=== PATIENT | male | born 1995 | race Caucasian/White ===

== ENCOUNTER 2018-10-02 15:25 | Inpatient (IN) | payer MEDICAID ==
--- NOTE | 2018-10-02 15:39 | EDPHY ---
H & P Source: Patient, RN/MD, EMS Exam Limitations: Clinical condition Time Seen by Provider: 10/02/18 15:34 HPI/ROS: HPI: This is a 23-year-old male who presents with Chief Complaint: M1 hold Location: psych Quality: M1 hold Duration: Unknown Signs and Symptoms: no auditory hallucinations, no visual hallucinations, no suicidal ideation with a plan, no homicidal ideation, + paranoia Timing: Acute on chronic Severity: Severe Context: Patient presents via EMS on M1 hold from crisis [facility]. Patient has a history of bipolar disorder and parents are extremely concerned about the patient not taking his Depakote for the last month. Patient has become increasingly irritable, insomnia, paranoid. Patient believes that Depakote is "poison"and that his parents are trying to"kill me." Evaluation completed by the crisis center prior to pt's arrival into the ED. Modifying Factors: None Comment: ROS: A comprehensive 10 system review of systems is otherwise negative aside from elements mentioned in the history of present illness. MEDICAL/SURGICAL/SOCIAL HISTORY: Medical history: Autism, traumatic brain injury, bipolar disorder Surgical history: Denies Social history: Lives with parents. Marijuana user. Last alcohol use was in July 2018. Denies tobacco use. Family history noncontributory. CONSTITUTIONAL: Polite and cooperative, tidy, young adult white male, awake and alert, no obvious distress HEENT: Atraumatic and normocephalic, PERRL, EOMI. Nares patent; no rhinorrhea; no nasal mucosal edema. Tympanic membranes clear. Oropharynx clear, no exudate and moist pink mucosa. Airway patent. No lymphadenopathy. No meningismus. Cardiovascular: Normal S1/S2, regular rate, regular rhythm, without murmur rub or gallop. PULMONARY/CHEST: Symmetrical and nontender. Clear to auscultation bilaterally. Good air movement. No accessory muscle usage. ABDOMEN: Soft, nondistended, nontender, no rebound, no guarding, no peritoneal signs, no masses or organomegaly. No CVAT. EXTREMITIES: 2/2 pulses, strength 5/5, no deformities, no clubbing, no cyanosis or edema. NEUROLOGICAL: no focal neuro deficits. GCS 15. Slowed cognition. SKIN: Warm and dry, no erythema. no rash. Good capillary refill. PSYCH: Fair eye contact, no flight of ideas, disorganized thought process, poor insight and judgment, no auditory hallucinations, no visual hallucinations , no suicidal ideation with a plan, no homicidal ideation, + paranoia (Bette Carranza) Constitutional: Initial Vital Signs Temperature (C) 36.6 C 10/02/18 15:46 Heart Rate 132 H 10/02/18 15:46 Respiratory Rate 18 10/02/18 15:46 Blood Pressure 149/103 H 10/02/18 15:46 O2 Sat (%) 97 10/02/18 15:46 O2 Delivery Mode Room Air Allergies/Adverse Reactions: No Known Allergies Allergy (Unverified 10/02/18 15:55) Home Medications: Medication Instructions Recorded Depakote 10/02/18 Medical Decision Making ED Course/Re-evaluation: 1530: Agree with M1 hold. Labs and UDS ordered. Patient is currently calm and cooperative in no further chemical intervention is required. 1615: Labs reviewed and grossly unremarkable. Urine drug screen negative. Medically clear for mental health evaluation. 1700: End of shift. Signed over to Dr. Howard pending final disposition which I believe will be inpatient psychiatric admission. This patient was seen under the supervision of my secondary supervising physician. I evaluated care for this patient with my attending. Discussed this patient with Dr. Howard who did not see the patient. (Bette Carranza) 2218: Patient accepted at [address] [place] [address] Hough. EMTALA and appropriate transfer to be set up. (Emile Howard) Differential Diagnosis: Differential diagnosis includes but is not limited to major depression, anxiety disorder, schizophrenia, bipolar disorder, intoxicant use, suicidal ideation, psychosis, garcia. (Bette Carranza) - Data Points Laboratory Results: Laboratory Results 10/02/18 15:50 10/02/18 15:50 10/02/18 10/02/18 10/02/18 15:50 15:50 15:45 WBC 9.00 10^3/uL 10^3/uL (3.80-9.50) RBC 5.33 10^6/uL 10^6/uL (4.40-6.38) Hgb 16.1 g/dL g/dL (13.7-17.5) Hct 45.9 % % (40.0-51.0) MCV 86.1 fL fL (81.5-99.8) MCH 30.2 pg pg (27.9-34.1) MCHC 35.1 g/dL g/dL (32.4-36.7) RDW 11.9 % % (11.5-15.2) Plt Count 302 10^3/uL 10^3/uL (150-400) MPV 10.4 fL fL (8.7-11.7) Neut % (Auto) 59.7 % % (39.3-74.2) Lymph % (Auto) 30.9 % % (15.0-45.0) [place] % (Auto) 9.1 % % (4.5-13.0) Eos % (Auto) 0.0 % L % (0.6-7.6) Baso % (Auto) 0.2 % L % (0.3-1.7) Nucleat RBC Rel Count 0.0 % % (0.0-0.2) Absolute Neuts (auto) 5.37 10^3/uL 10^3/uL (1.70-6.50) Absolute Lymphs (auto) 2.78 10^3/uL 10^3/uL (1.00-3.00) Absolute Monos (auto) 0.82 10^3/uL H 10^3/uL (0.30-0.80) Absolute Eos (auto) 0.00 10^3/uL L 10^3/uL (0.03-0.40) Absolute Basos (auto) 0.02 10^3/uL 10^3/uL (0.02-0.10) Absolute Nucleated RBC 0.00 10^3/uL 10^3/uL (0-0.01) Immature Gran % 0.1 % % (0.0-1.1) Immature Gran # 0.01 10^3/uL 10^3/uL (0.00-0.10) Sodium 139 mEq/L mEq/L (135-145) Potassium 3.6 mEq/L mEq/L (3.5-5.2) Chloride 101 mEq/L mEq/L (97-110) Carbon Dioxide 22 mEq/l mEq/l (22-31) Anion Gap 16 mEq/L H mEq/L (6-14) BUN 9 mg/dL mg/dL (7-23) Creatinine 0.8 mg/dL mg/dL (0.7-1.3) Estimated GFR > 60 Glucose 112 mg/dL H mg/dL (70-100) Calcium 10.1 mg/dL mg/dL (8.5-10.4) Urine Opiates Screen NEGATIVE (NEGATIVE) Urine Barbiturates NEGATIVE (NEGATIVE) Valproic Acid 29.8 mcg/mL L mcg/mL (50.0-150.0) Ur Phencyclidine Scrn NEGATIVE (NEGATIVE) Ur Amphetamine Screen NEGATIVE (NEGATIVE) U Benzodiazepines Scrn NEGATIVE (NEGATIVE) Urine Cocaine Screen NEGATIVE (NEGATIVE) U Marijuana (THC) Screen NEGATIVE (NEGATIVE) Ethyl Alcohol < 10 mg/dL mg/dL (0-10) Departure - Departure Disposition: [facility] IP Clinical Impression: Not taking medication as directed Bipolar affective psychosis Qualifiers: Active/Remission status: currently active Current bipolar episode type: manic Current episode severity: severe Psychotic features: without psychotic features Qualified Code(s): F31.13 - Bipolar disorder, current episode manic without psychotic features, severe
[2018-10-02 16:02] LABS: PLATELET COUNT 302 10^3/uL (150-400)
[2018-10-02] MEDS ORDERED: NICOTINE POLACRILEX 2 MG GUM B PRN (23:11)
[2018-10-02] MEDS ORDERED: MAGNESIUM HYDROXIDE 30 ML UDCUP PO PRN (23:11)
[2018-10-02] MEDS ORDERED: MAG HYDROX/AL HYDROX/SIMETH 30 ML UDCUP PO PRN (23:11)
[2018-10-02] MEDS: ACETAMINOPHEN 325 MG TAB PO PRN (23:35)
[2018-10-02] MEDS: LORazepam 0.5 MG TAB PO PRN (23:35)
[2018-10-03] MEDS: LORazepam 0.5 MG TAB PO PRN (09:49)
--- NOTE | 2018-10-03 09:59 | ASMTBHMTP ---
Master Treatment Plan Master Treatment Plan Answers: Mood Instability with for: Psychosis Date: 10/03/2018 Diagnosis on Admission: Posttraumatic Stress Disorder 309.81 Expected length of stay: 3-5 Days Reason for admission: Notes: Per ED Report - Patient presents via EMS on M1 hold from [facility]. Patient has a history of bipolar disorder and parents are extremely concerned about the patient not taking him Depakote for the last month. Patient has become increasingly irritable, insomnia, paranoid. Patient believe that Depakote is "poison" and that his parents are trying to "kill me". Evaluation completed by the crisis center prior to pt's arrival into the ED. Patient's stated presenting problems: Notes: Pt reports having "bad side effects from medications", adding he would "stay up for 3-4 day in a row, and only be able to sleep a couple of hours". Patient's goals for treatment: Notes: Pt stated " not be reliant on prescriptions" adding he would like to at least use less medications . Patient's strengths: Notes: Pt. stated "Focus" Identify supports outside of hospital: Notes: Pt stated "Don't really have one". Discharge criteria: Notes: Patient will demonstrate more stable mood by discharge. Initial disposition plan/considerations: Notes: Return home where pt. lives with his parents. Master Treatment Plan Required Signatures Psychiatrist signature: Answers: Jm Hough MD: RN on-shift signature: Answers: RN: Patient signature: Answers: Patient: Date Signed: 10/03/2018 09:58 AM Electronically Signed By:Candy Ashton
--- NOTE | 2018-10-03 14:14 | ASMTCMCOM ---
CM Note CM Note Notes: Pt and CC completed MTP, signed and placed in pt's chart. Pt. reports having "bad side effects from medication" adding the medication was Depakote. Pt. stated this is his second hospitalization, adding he was last hospitalized 10 years ago in [place]. Pt. stated he does not drink alcohol. Pt. reports smoking or vaping THC "once a week". Pt. denied all other substance use. Pt. reports not currently having a job. Pt. presents as alert, anxious, tense, inconsistent eye contact, somewhat guarded, and mostly cooperative. Staff report pt. sleeping 6 hours and attending groups. Date Signed: 10/03/2018 02:14 PM Electronically Signed By:Candy Ashton
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
--- NOTE | 2018-10-03 17:50 | PDMN ---
Medical Necessity Medical necessity: Pt meets INPT criteria per MD as of 10/02/18 and [facility] Behavioral Health [facility] (mood and personality changes d/t TBI, M1 hold).
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
[2018-10-03] MEDS ORDERED: DIVALPROEX ER 500 MG TAB PO SCH (21:00)
[2018-10-04] MEDS ORDERED: DIVALPROEX ER 500 MG TAB PO SCH (06:39)
--- NOTE | 2018-10-04 12:45 | ASMTCMCOM ---
CM Note CM Note Notes: CC spoke to pt after pt. called 911 on himself. Pt. stated he feels scared of "other people" including staff. Pt. stated he would like to be transferred to another hospital. Pt. stated he slept "not very good". Pt. stated he called the police on himself due to feeling guilty. Pt. stated he was stalking someone for over a year. Pt. stated this is why he has a court date. Pt. stated he does not remember when his court date is. Pt. signed an ANISH for his father, for CC to call and confirm pt's court date. Pt. stated he "want things to change", adding he wants the woman he was stalking to "feel safe", adding he will stay away from her. Pt later told CC he is willing to take the Depakote. Pt. presents as alert, anxious, tearful at times, inconsistent eye contact, struggling to remember, and cooperative. Staff report pt. sleeping 5.5 hours. Date Signed: 10/04/2018 12:44 PM Electronically Signed By:Candy Ashton
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
--- NOTE | 2018-10-04 16:48 | ASMTLCPROG ---
Notes Note: Notes: Note written by Brien Red - late entry d/t IT issues. M1 AND [facility] EVAL FAX ATTACHED. Date Signed: 10/04/2018 04:47 PM Electronically Signed By:Ailyn Guillermo RN
[2018-10-04] MEDS ORDERED: OLANZapine 10 MG TAB PO ONE (20:00)
[2018-10-04] MEDS ORDERED: OLANZapine 10 MG/2 ML VIAL IM ONE (20:00)
[2018-10-04] MEDS ORDERED: LORazepam 2 MG/ML INJ IM ONE (20:00)
[2018-10-04] MEDS ORDERED: LORazepam 1 MG TAB PO ONE (20:00)
[2018-10-04] MEDS: DIVALPROEX ER 500 MG TAB PO SCH (20:21)
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
[2018-10-05] MEDS: OLANZapine 5 MG TAB PO PRN (17:02)
[2018-10-05] MEDS: DIVALPROEX ER 500 MG TAB PO SCH (21:02)
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
--- NOTE | 2018-10-06 14:06 | ASMTBHFAM ---
Notes Note: Notes: Addendum to previous note: Per MOC, the patient is prescribed 1000mg of Depakote, HS, PO. He has a history of taking Risperdal and Abilify. The patient stopped Risperdal due to the cost of the medication. He was prescribed Abilify in addition to Depakote for three years prior to discontinuing the medication. MOC reported that the client was successful on both medications. Date Signed: 10/06/2018 02:05 PM Electronically Signed By:Leticia Garza
--- NOTE | 2018-10-06 14:30 | SOAPPROG ---
SOAP Progress Note Assessment/Plan: Assessment: Plan: 10/04/18 15:57 Mood: REmains low. Agrees to restart VPA. This is likely to help with stability of mood, though he may need more definitive treatment for quality of mood. Will [facility] for now, convene family meeting to discuss next steps inc: [employer]. 10/05/18 14:57 Mood/psychosis: Remains intermittently agitated, paranoid. His belief that he needs to protect himself is concerning re: possible aggressive behaviors based on paranoid delusions. Remains on SP and AP. Will [facility], consider addition of antipsychotic. Parents available for family meeting tomorrow. 10/06/18 14:30 Mood/psychosis: REmains labile, agitated, self-abusive, psychotic. Will titrate VPA and add Risperdal, monitor. Subjective: Pt seen, discussed with staff, chart reviewed. Pt escalate last night, placed on LOS due to self-harming. He is better today, seems to consolidate when in the milieu. Family meeting scheduled for noon, but family 45 minutes late. CC held meeting and was able to obtain a bit more information. Pt reportedly took Risperdal in the past with good effect. It was d/c'd due to cost. Objective: Vital Signs Temp Pulse Resp BP Pulse Ox 36.7 C 123 H 16 112/63 93 10/05/18 06:00 10/05/18 06:00 10/05/18 06:00 10/05/18 06:00 10/05/18 06:00 MSE: Calm, coop. Affect is restricted, anxious, tearful at times. Mood is "bad." TP is linear at times, but frequently derails. TC reveals paranoid, bizarre, somatic and erotomanic delusions. SI persists, based primarily in pt' s overriding belief he has done something wrong and deserves to be punished. - Time Spent With Patient Time Spent With Patient: 15" ICD10 Worksheet Patient Problems: Problems Problem Status Onset Bipolar affective psychosis Acute Not taking medication as directed Acute
[2018-10-06] MEDS ORDERED: CEPACOL LOZENGE PO PRN (16:49)
[2018-10-06] MEDS: LORazepam 0.5 MG TAB PO PRN (18:49)
[2018-10-06] MEDS: OLANZapine 5 MG TAB PO PRN (18:59)
[2018-10-06] MEDS: DIVALPROEX ER 500 MG TAB PO SCH (21:49)
[2018-10-06] MEDS: RISPERIDONE 2 MG ODT TAB SL SCH (21:49)
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
[2018-10-07] MEDS: RISPERIDONE 2 MG ODT TAB SL SCH (19:54)
[2018-10-07] MEDS: DIVALPROEX ER 500 MG TAB PO SCH (19:54)
--- NOTE | 2018-10-07 22:50 | SOAPPROG ---
SOAP Progress Note Assessment/Plan: Assessment: Plan: 10/04/18 15:57 Mood: REmains low. Agrees to restart VPA. This is likely to help with stability of mood, though he may need more definitive treatment for quality of mood. Will [facility] for now, convene family meeting to discuss next steps inc: [employer]. 10/05/18 14:57 Mood/psychosis: Remains intermittently agitated, paranoid. His belief that he needs to protect himself is concerning re: possible aggressive behaviors based on paranoid delusions. Remains on SP and AP. Will [facility], consider addition of antipsychotic. Parents available for family meeting tomorrow. 10/06/18 14:30 Mood/psychosis: REmains labile, agitated, self-abusive, psychotic. Will titrate VPA and add Risperdal, monitor. Subjective: Pt seen, discussed with staff. Reserved and calm this morning. Had an event later in the day thought to be a seizure. Evaluated by Dr. Armando and sent to ED. Dx'd with pseudoseizures. Had similar event upon returning to unit. Spoke with RN at that time and it does not seem to represent a true epileptic seizure. Will monitor. Objective: Vital Signs Temp Pulse Resp BP Pulse Ox 36.8 C 96 16 136/76 H 98 10/07/18 07:06 10/07/18 07:06 10/07/18 07:06 10/07/18 07:06 10/07/18 07:06 ICD10 Worksheet Patient Problems: Problems Problem Status Onset Bipolar affective psychosis Acute Not taking medication as directed Acute Anxiety reaction Acute Seizure-like activity Acute
[2018-10-08] MEDS: LORazepam 0.5 MG TAB PO PRN (11:26)
--- NOTE | 2018-10-08 11:58 | ASMTCMCOM ---
CM Note CM Note Notes: Pt. reports today "just like any other normal day". Pt. stated he has a "lot on my mind and chest to get off", referring to the past ten years of his life. Pt. stated his sleep was "little difficult". Pt. reports "feeling sick", adding he is having a "hard time holding food in", adding he threw up today. Pt. discussed his medications, stating "just that some of them make me feel light headed". Pt. stated he missed most of the groups yesterday, due to being in the ED, adding he plans to attend all groups today. Pt. reports SI, stating he has a plan, but did not want to share with CC. Pt. contracted for safety while on the unit, and rated his SI a 4 or 5/10. Pt. reports having seizures for "the last couple of months", adding he would fall asleep in one room and wake up in a different area. Pt. stated last evening he wasn't having a seizure but was having an anxiety attack. Pt. reports his anxiety currently being a 6/10, adding at home his anxiety is a 9-10/10. Pt. reports "feel a lot calmer here". Pt. requested to speak with CC about the last two years and his recent relationship. Pt. reported he would spend his money on drugs instead of diapers for his girlfriend's two children. Pt. presents as alert, very guarded, evasive at times, fair to poor eye contact, rigid posture, and mostly cooperative. Staff report pt. sleeping 7.5 hours and being medication compliant. Date Signed: 10/08/2018 11:57 AM Electronically Signed By:Candy Ashton
--- NOTE | 2018-10-08 12:38 | SOAPPROG ---
SOAP Progress Note Assessment/Plan: Assessment: Plan: 10/04/18 15:57 Mood: REmains low. Agrees to restart VPA. This is likely to help with stability of mood, though he may need more definitive treatment for quality of mood. Will [facility] for now, convene family meeting to discuss next steps inc: meds. 10/05/18 14:57 Mood/psychosis: Remains intermittently agitated, paranoid. His belief that he needs to protect himself is concerning re: possible aggressive behaviors based on paranoid delusions. Remains on SP and AP. Will [facility], consider addition of antipsychotic. Parents available for family meeting tomorrow. 10/06/18 14:30 Mood/psychosis: REmains labile, agitated, self-abusive, psychotic. Will titrate VPA and add Risperdal, monitor. 10/08/18 12:41 Mood/psychosis: Continues to function at a very low level. Now demonstrating primitive regressive behaviors. Behavioral plan in place. Will [facility], monitor. Subjective: Pt seen, discussed with staff. Events of last night reviewed. He is sitting in day room watching TV when I arrive on the unit. 15 minutes later, he is still sitting, but has his eyes closed with his UE's bent at the elbow isotonically flexing with fists clenched. His neck is similarly tensed/flexed. He demonstrates normal postural tone. He does not respond to verbal or tactile stimuli. He continues this behavior for at last ten minutes before calming. Approximately one hour later, he is noted to be sitting in a similar position, though leaning to his right, shaking and flexing his upper musculature in a more rhythmic manner. Remains unresponsive. Objective: Vital Signs Temp Pulse Resp BP Pulse Ox 36.5 C 116 H 16 140/74 H 99 10/08/18 06:00 10/08/18 06:00 10/08/18 06:00 10/08/18 06:00 10/08/18 06:00 MSE: Marginally groomed, coop. Affect is restricted, stable. Mood is "not too good." TP is generally disorganized. TC reveals continued paranoid and bizarre thoughts. - Time Spent With Patient Time Spent With Patient: 25" ICD10 Worksheet Patient Problems: Problems Problem Status Onset Bipolar affective psychosis Acute Not taking medication as directed Acute
--- NOTE | 2018-10-08 12:41 | ASMTBHFAM ---
Notes Note: Notes: CC spoke with [facility] [phone] MOC stated pt. is "convinced people are trying to kill him". MOC stated pt does not have any court dates or any legal issues. MOC stated pt. was also not stalking or charged with stalking, MOC added this is part of the patient's current mental health issues. stated at baseline, pt. is calm and very non violent or aggressive. CC informed [facility] [place] going to the ED for SZ yesterday. MOC stated she was surprised to hear he had a seizure, adding he doesn't have them normally. MOC stated their dog had a seizure disorder. MOC stated pt is "trying to act as normal as possible to get out". MOC stated pt. "preseverates", and is "easily redirectable", and benefits from "concreate directions" and "being rational". MOC stated pt. attempted suicide in June of 2018 by alcohol poisoning. MOC stated she was upset pt was not placed on a hold at that time. MOC stated pt laryy wanted to get back on Depakote and was "back to normal" around . MOC stated pt. has been able to make only one appointment on his own in his life. MOC stated pt. was tested and functions around a 9th grade level. MOC stated pt. may take a little longer to benefit from medications, adding the pt. has had reactions to medications in the past. MOC stated pt "needs more reinforcement". MOC stated there are antique guns locked away in the home, adding they do not fire and there is not ammunition for them in the home. MOC stated she is not worried about pt. using these antique guns to harm himself. Date Signed: 10/08/2018 12:40 PM Electronically Signed By:Candy Ashton
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
[2018-10-08] MEDS: DIVALPROEX ER 500 MG TAB PO SCH (20:24)
[2018-10-08] MEDS: RISPERIDONE 2 MG ODT TAB SL SCH (20:25)
--- NOTE | 2018-10-09 14:20 | ASMTCMCOM ---
CM Note CM Note Notes: CC met with pt while he was eating breakfast. Pt. reports "not feeling too good". Pt. stated he feels like he has the flu, adding he has nausea and a headache. Pt. stated it is "hard to eat right now" due to the nausea. Pt. stated he slept "not too good" stating due to not feeling good. Pt. stated he attended a few groups yesterday. CC asked pt about his medications, pt stated "don't know what I'm taking or how much". Pt. stated he misses being in his room in the hospital. Pt. reports having 1-2 anxiety attacks this morning, when he can't control himself and shakes. Pt. stated "it's the medicine" adding he believe these anxiety attacks are due to the Ativan. Pt. stated Ativan is "making me feel nauseous and dizzy". Pt. denied SI, HI, AVH and paranoia. Pt. requested to be allowed back in his room today. Pt. presents as alert, anxious, guarded, somewhat evasive, lacking insight, good eye contact, and mostly cooperative. Staff report pt. sleeping 7 hours and being medication compliant. CC reviewed pt.'s behavioral plan with him today. CC explained to pt that due to his pseudoseizures/anxiety attacks pt will not be allowed back into his room at this point for safety reasons. Pt. threw up later in the day and staff noticed pt threw up his Depakote. Pt. stated he no longer wants to take Depakote. Date Signed: 10/09/2018 02:19 PM Electronically Signed By:Candy Ashton
--- NOTE | 2018-10-09 14:41 | SOAPPROG ---
SOAP Progress Note Assessment/Plan: Assessment: Per Dr. George's notes: 10/04/18 15:57 Mood: REmains low. Agrees to restart VPA. This is likely to help with stability of mood, though he may need more definitive treatment for quality of mood. Will [facility] for now, convene family meeting to discuss next steps inc: meds. 10/05/18 14:57 Mood/psychosis: Remains intermittently agitated, paranoid. His belief that he needs to protect himself is concerning re: possible aggressive behaviors based on paranoid delusions. Remains on SP and AP. Will [facility], consider addition of antipsychotic. Parents available for family meeting tomorrow. 10/06/18 14:30 Mood/psychosis: REmains labile, agitated, self-abusive, psychotic. Will titrate VPA and add Risperdal, monitor. 10/08/18 12:41 Mood/psychosis: Continues to function at a very low level. Now demonstrating primitive regressive behaviors. Behavioral plan in place. Will [facility], monitor. Subjective: Pt seen, discussed with staff. Events of last night reviewed. He is sitting in day room watching TV when I arrive on the unit. 15 minutes later, he is still sitting, but has his eyes closed with his UE's bent at the elbow isotonically flexing with fists clenched. His neck is similarly tensed/flexed. He demonstrates normal postural tone. He does not respond to verbal or tactile stimuli. He continues this behavior for at last ten minutes before calming. Approximately one hour later, he is noted to be sitting in a similar position, though leaning to his right, shaking and flexing his upper musculature in a more rhythmic manner. Remains unresponsive. WEEKEND COVERAGE PLAN: 10/09/18 14:33 1. Patient threw up this AM. Claims "the meds" are making him nauseous, even though he has tolerated Depakote for months without N/V. 2. Patient says he needs to "get back in my room" even though he was engaging in unsafe behaviors in his room including destroying property and ingesting toiletries. Will continue OOR program for his safety. 3. No seizures or abnormal movements while this MD was observing patient. 4. Patient claims he no longer wants to take Depakote. Family wants to know if he can be started on RICHARDS. MD explained that treatment team will need to determine whether patient can tolerate current antipsychotic medication ( Risperdal) and whether it is effective for his symptoms before switching to RICHARDS which can always be done at later time as an outpatient if warranted. 5. Will continue current treatment and assess for SE's. Subjective: Patient threw up this AM. He says he doesn't want to take VPA anymore b/c he thinks that's what made him sick. However, patient has taken VPA at home for quite awhile without reporting N/V. When MD spoke to patient, he was sitting in chair in front of the TV without moving. He did not have any abnormal muscle movements and there were no signs of the contractions or unresponsiveness that Dr. Armando and Dr. George noted yesterday. MD continued to observe the patient at other times during the day and did not observe any seizure-like activity. Objective: Vital Signs Temp Pulse Resp BP Pulse Ox 36.6 C 83 16 126/81 H 94 10/09/18 02:11 10/09/18 02:11 10/09/18 02:11 10/09/18 02:11 10/09/18 02:11 MSE: Affect: Flat at times, irritable other times (when insisting he didn't want to take VPA) Mood: "OK" TP: Perseverative TC: Denies any SI/HI Insight/ Judgment: Limited - Time Spent With Patient Time Spent With Patient: 15" - Pending Discharge Pending Discharge Within 24 Hours: No Pending Discharge Within 48 Hours: No ICD10 Worksheet Patient Problems: Problems Problem Status Onset Bipolar affective psychosis Acute Not taking medication as directed Acute
[2018-10-09] MEDS: OLANZapine 5 MG TAB PO PRN (17:59)
[2018-10-09] MEDS: DIVALPROEX ER 500 MG TAB PO SCH (20:36)
[2018-10-09] MEDS: RISPERIDONE 2 MG ODT TAB SL SCH (20:36)
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
--- NOTE | 2018-10-10 16:22 | SOAPPROG ---
SOAP Progress Note Assessment/Plan: Assessment: Per Dr. George's notes: 10/04/18 15:57 Mood: REmains low. Agrees to restart VPA. This is likely to help with stability of mood, though he may need more definitive treatment for quality of mood. Will [facility] for now, convene family meeting to discuss next steps inc: meds. 10/05/18 14:57 Mood/psychosis: Remains intermittently agitated, paranoid. His belief that he needs to protect himself is concerning re: possible aggressive behaviors based on paranoid delusions. Remains on SP and AP. Will [facility], consider addition of antipsychotic. Parents available for family meeting tomorrow. 10/06/18 14:30 Mood/psychosis: REmains labile, agitated, self-abusive, psychotic. Will titrate VPA and add Risperdal, monitor. 10/08/18 12:41 Mood/psychosis: Continues to function at a very low level. Now demonstrating primitive regressive behaviors. Behavioral plan in place. Will [facility], monitor. Subjective: Pt seen, discussed with staff. Events of last night reviewed. He is sitting in day room watching TV when I arrive on the unit. 15 minutes later, he is still sitting, but has his eyes closed with his UE's bent at the elbow isotonically flexing with fists clenched. His neck is similarly tensed/flexed. He demonstrates normal postural tone. He does not respond to verbal or tactile stimuli. He continues this behavior for at last ten minutes before calming. Approximately one hour later, he is noted to be sitting in a similar position, though leaning to his right, shaking and flexing his upper musculature in a more rhythmic manner. Remains unresponsive. WEEKEND COVERAGE PLAN: 10/09/18 14:33 1. Patient threw up this AM. Claims "the meds" are making him nauseous, even though he has tolerated Depakote for months without N/V. 2. Patient says he needs to "get back in my room" even though he was engaging in unsafe behaviors in his room including destroying property and ingesting toiletries. Will continue OOR program for his safety. 3. No seizures or abnormal movements while this MD was observing patient. 4. Patient claims he no longer wants to take Depakote. Family wants to know if he can be started on RICHARDS. explained that treatment team will need to determine whether patient can tolerate current antipsychotic medication ( Risperdal) and whether it is effective for his symptoms before switching to RICHARDS which can always be done at later time as an outpatient if warranted. 5. Will continue current treatment and assess for SE's. PLAN: 10/10/18 16:19 1. Patient has more energy and animation today. He is not so immobile as previous 2 days. 2. Patient has not demonstrated any seizure-like activity or abnormal movements over w/e. 3. Patient denies any N/V since yesterday. 4. Patient took VPA and Risperdal as prescribed last night despite telling MD yesterday that he didn't want to take VPA. 5. CCM. Subjective: Patient feeling "better" today, denies any physical complaints. Patient denies any N/V since yesterday. He also denies any lightheadedness, dizziness, ataxia, muscle spasms, contractions, abnormal muscle movements, tics, twitches, OSBORN. MD has not observed any seizure-like activity over w/e. Patient took shower this AM and did his laundry. Objective: Vital Signs Temp Pulse Resp BP Pulse Ox 36.6 C 83 16 126/81 H 94 10/09/18 02:11 10/09/18 02:11 10/09/18 02:11 10/09/18 02:11 10/09/18 02:11 MSE: Affect: Calm, cooperative Mood: "Fine" TP: Goal-directed TC: Denies any SI/HI Insight/Judgment: Poor - Time Spent With Patient Time Spent With Patient: 15" - Pending Discharge Pending Discharge Within 24 Hours: No Pending Discharge Within 48 Hours: No ICD10 Worksheet Patient Problems: Problems Problem Status Onset Bipolar affective psychosis Acute Not taking medication as directed Acute
[2018-10-10] MEDS: DIVALPROEX ER 500 MG TAB PO SCH ×2 (22:11→22:40)
[2018-10-10] MEDS: RISPERIDONE 2 MG ODT TAB SL SCH ×2 (22:12→22:40)
--- NOTE | 2018-10-11 08:32 | SOAPPROG ---
SOAP Progress Note Assessment/Plan: Assessment: Schizoaffective Disorder, delusional. No improvement noted, refused HS medications (see subjective/objective note). Patient is not safe to discharge at this time as patient continues to exhibit signs of psychosis, and express psychosis symptoms. Patient requires continued inpatient care because of current psychosis, and requires inpatient level of care to stabilize in order to no longer be gravely disabled due to mental illness. Patient could benefit from continued inpatient hospitalization for crisis stabilization, safety, and medication evaluation. Plan: 1. Psychotropic medications: After reviewing options, risks, and benefits patient agrees to continue current medications. No other medication changes at this time as more time is needed to determine ongoing tolerability and efficacy. Plan is to continue to observe patient for response and side effects from medications, and ongoing monitoring and evaluation. 2. Review with patient informed consent and recommendations for psychotropic medication treatment listed below 3. Labs: no additional labs at this time 4. Therapy: continue milieu and group therapy 5. Further investigation including gathering information from patients relatives and review of past case records to inform treatment plan. 6. Safety/Wellness plan and follow-up outpatient appointments to be established prior to discharge. Next steps are for patient to meet with cattle care worker to plan a safe discharge plan and establish outpatient services for ongoing treatment. 7. Confer with inpatient treatment team regarding treatment plan. 8. Psychosocial stressors addressed through human services care specialist 9. Legal status: [facility] 10. Consider discharge next week if patient is in stable condition, safe, and has a safe discharge plan. PSYCHOTROPIC MEDICATION TREATMENT INFORMED CONSENT and RECOMMENDATIONS: Review nature of condition, diagnosis, and prognosis. Review nature and purpose of psychotropic medication treatment. Review type of psychotropic medications being ordered. Review risk and benefits of psychotropic medication treatment. Review probable length of time patient will need to take medications. Review risk and benefits of not undergoing psychotropic medication treatment. Review alternative treatments to psychotropic medications. Review psychotropic medications contraindications, drug-drug interactions, side effects, and importance of reporting any side effects to a psychiatric provider or nurse during inpatient hospitalization, and upon discharge to patients psychiatric outpatient provider, primary care provider, or other health managed care director. Review importance of asking a nurse, psychiatric provider, or primary care provider any questions or problems concerning the psychotropic medications. Verify patient understands the information that has been provided, and understands, accepts, and agrees to psychotropic medications. Review patients safety plan and importance of patient to report to staff while hospitalized if patient is ever a danger to self/others, or unable to care for self, and upon discharge, the importance for patient to contact [facility] or [facility], or go to the nearest emergency room, if patient is ever a danger to self/others, or unable to care for self. Recommend that upon discharge patient establish medication management treatment with a psychiatric provider, establishes routine therapy appointments, and follow-up with primary care provider. Verify patient understands and agrees to these recommendations. 10/11/18 08:35 Subjective: Following up with patient for evaluation of psychosis, garcia, and safety. Patient reports, "Feeling better, listening to the nurses and doctors." Patient expresses the following psychiatric symptoms moderate anxiety. Patient reports taking medications as prescribed, and describes response to medications as good (RN reports patient refused HS medications). Patient does not report undesirable side effects from the medications, and agrees to continue current medications. Patient describes getting 8 hours of sleep, and reports feeling rested today. Objective: Vital Signs Temp Pulse Resp BP Pulse Ox 36.8 C 104 H 14 97/53 L 97 10/11/18 06:00 10/11/18 06:00 10/11/18 06:00 10/11/18 06:00 10/11/18 06:00 NURSING REPORT: Consulted with nursing for update on patients progress in treatment. Nurses report patient is not engaged in treatment, is not attending groups, slept 7 hours, expresses the following psychiatric symptoms: anxiety, exhibits the following psychiatric symptoms: delusional, is eating all meals, is not agreeable to medications and not taking as prescribed with no report of side effects, with no s/s of EPS/akathisia, and denies SI/HI, denies A/V hallucinations, and reports delusions. Nursing note from 10/10/18: pt remains delusional, that someone is out to murder him. Otherwise, he continually says contradictory statements about his delusional system. ultimately refused his evening medications, despite repeated encouragement from staff. MSE: The patient is a well-nourished male looking stated chronological age. Attire is appropriate and dress is casual. Grooming status is appropriate. Ambulation is independent. Gait is normal and coordinated. Posture is normal and relaxed. Eye contact is appropriate. Motor activity is appropriate with purposeful, organized, coordinated movements; with no involuntary movements. Attitude is cooperative and friendly. Patient appears attentive and relates well to this interviewer. Language production is spontaneous. Rate is hesitant , latency of response is prolonged, volume normal. Articulation is clear. Patient reports mood as okay with constricted, flat, and incongruent affect. Patients thought process disorganized, non-linear, and illogical. Patient does not report suicidal/homicidal thoughts, ideas, or plans. Patient denies auditory, visual hallucinations. Patient reports delusions. Patient does appear to be attending to internal stimuli. Patients attention and concentration are poor. Patient is oriented to person, place, and time. Patient appears to be a poor historian. Patients insight and judgment poor. - Time Spent With Patient Time Spent With Patient: 15 minutes, met with patient individually. - Pending Discharge Pending Discharge Within 24 Hours: No Pending Discharge Within 48 Hours: No ICD10 Worksheet Patient Problems: Problems Problem Status Onset Bipolar affective psychosis Acute Not taking medication as directed Acute
[2018-10-11] MEDS: DIVALPROEX ER 500 MG TAB PO SCH (22:01)
[2018-10-11] MEDS: RISPERIDONE 2 MG ODT TAB SL SCH (22:01)
[2018-10-12] MEDS: ACETAMINOPHEN 325 MG TAB PO PRN (07:50)
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
--- NOTE | 2018-10-12 12:04 | ASMTCMCOM ---
CM Note CM Note Notes: CC out-reached MOC at [phone]; no answer left message with all necessary return contact information, etc. Date Signed: 10/12/2018 12:03 PM Electronically Signed By:Grant Evans
[2018-10-12] MEDS: LORazepam 0.5 MG TAB PO PRN (16:23)
[2018-10-12] MEDS: DIVALPROEX ER 500 MG TAB PO SCH (17:48)
[2018-10-12] MEDS: RISPERIDONE 2 MG ODT TAB SL SCH (19:58)
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
[2018-10-13] MEDS: DIVALPROEX ER 500 MG TAB PO SCH (20:23)
[2018-10-13] MEDS: RISPERIDONE 2 MG ODT TAB SL SCH (20:23)
[2018-10-14] MEDS ORDERED: RISPERIDONE MICROSPHERES 25 MG/2 ML IM ONE (12:01)
--- NOTE | 2018-10-14 17:40 | SOAPPROG ---
SOAP Progress Note Assessment/Plan: Assessment: Plan: 10/04/18 15:57 Mood: REmains low. Agrees to restart VPA. This is likely to help with stability of mood, though he may need more definitive treatment for quality of mood. Will [facility] for now, convene family meeting to discuss next steps inc: meds. 10/05/18 14:57 Mood/psychosis: Remains intermittently agitated, paranoid. His belief that he needs to protect himself is concerning re: possible aggressive behaviors based on paranoid delusions. Remains on SP and AP. Will CCM, consider addition of antipsychotic. Parents available for family meeting tomorrow. 10/06/18 14:30 Mood/psychosis: REmains labile, agitated, self-abusive, psychotic. Will titrate VPA and add Risperdal, monitor. 10/08/18 12:41 Mood/psychosis: Continues to function at a very low level. Now demonstrating primitive regressive behaviors. Behavioral plan in place. Will [facility], monitor. 10/12/18 11:03 Mood/psychosis: Continued improvement. Hope to encourage pt to continue positive and self-efficacious behaviors. Will check VPA level, schedule family meeting. 10/13/18 14:41 Mood/psychosis: Much improved overall. Primitive acting out has stopped. Will [facility]. Family meeting tomorrow. 10/14/18 17:40 Mood/psychosis: Continued improvement. CCM. Likely d/c tomorrow. Subjective: Pt seen, discussed with staff, interviewed in family meeting with myself, pt's mother, and CC present. He remains in good behavioral control. Complying without complaint with reverse room protocol. Compliant with medications. Pt is agreeable to a Risperdal Consta injection. Agreeable to continuing medications, but questions whether or not he really needs them. All present give reinforcement for continued medication use. Discussed plan for d/c as early as tomorrow. Objective: Vital Signs Temp Pulse Resp BP Pulse Ox 36.8 C 98 14 109/57 L 96 10/14/18 06:00 10/14/18 06:00 10/14/18 06:00 10/14/18 06:00 10/14/18 06:00 MSE: Calm, coop. Affect is generally euthymic with an odd smile at times. Mood is "good." TP is linear with occasional blocking. TC reveals no mention of paranoia. Denies SI/HI/. - Time Spent With Patient Time Spent With Patient: 25" ICD10 Worksheet Patient Problems: Problems Problem Status Onset Bipolar affective psychosis Acute Not taking medication as directed Acute
[2018-10-14] MEDS: DIVALPROEX ER 500 MG TAB PO SCH (20:31)
[2018-10-14] MEDS: RISPERIDONE 2 MG ODT TAB SL SCH (20:31)
[2018-10-15] MEDS: LORazepam 0.5 MG TAB PO PRN (02:08)
[2018-10-15] MEDS: OLANZapine 5 MG TAB PO PRN (02:10)
[2018-10-15 06:57] VITALS: BP 107/62
--- NOTE | 2018-10-16 05:22 | BDS ---
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 He also has a history of possible pervasive development developmental delay and psychosis. He was admitted to the [facility] inpatient unit due to increasing agitation at home. He was paranoid about h is mother and stepfather, believing that they were publishing things about him on the internet that w ere untrue and poisoning his medications. He had stopped taking his medications and his mother had b ecome afraid of him. She encouraged him to come to the emergency department for evaluation. He was placed on an M1 hold and admitted to [address] [place] [address] for further evaluation and treatment. A full descriptio n of the events preceding admission can be found in Dr. Hough's admission history dated 10/03/2018. ADMISSION PHYSICAL EXAMINATION: Performed by Krish Lozada MD revealed no acute physical findings. ADMISSION LABORATORY: CBC was normal. Serum chemistries showed no significant abnormalities. Liver function was normal. Triglycerides were normal at 80. Cholesterol slightly up at 203. Urine drug screen was negative for all substances. Depakote level on admission was 29.8. HOSPITAL COURSE: Patient was admitted to the [facility] inpatient unit on an M1 hold. He was initially guarded, quite paranoid, and struggled to interact appropriately. He described a l ot of guilt and shame that he had done something to harm his family especially his mother and that he felt guilty about this. He felt that he should be punished and also felt like others were pursuing him in order to punish him. There are no specifics to this. He just had a generalized paranoia that people were after him. He would sit in his room and refused to come out either banging his head on the wall or punching himself in the face frequently. For this reason, he was placed on a reverse alcira m protocol in which his door was locked during the day when he was sitting in the day room. When he was in the day room, he was more appropriate, able to interact with others and did not engage in self -abusive behaviors. After several days of this, however, he began to display seizure-like activity. He would be sitting in a chair upright and suddenly close his eyes very tightly, stick his arms out in front of him, and begin to tense his upper body and shake. He refused to answer questions and at times would lay himself on the ground during these fits. He was sent to the emergency department aft er evaluation by Dr. Armando and he was diagnosed with pseudoseizures. These episodes went on for abo ut 5 days before they resolved. His last episode prior to admission was on 10/13/2018. The patient was continued on Depakote, though the level was increased to 1000 mg at bedtime obtaining a level of 45.9 on 10/13/2018. This seemed to make a big difference in decreasing his irritability, anxiety, and impulsive behaviors. He was also restarted on Risperdal at 2 mg at bedtime, which he t olerated well. [facility] liaison suggested a possible Risperdal Consta shot and we disc ussed this with the patient and his mother in a family meeting. He was agreeable to it and so we adm inistered 25 mg g Risperdal Consta on 04/16/2019. He tolerated this well with no side effects. Also in the family meeting we discussed at length his discharge plan and he stated he wanted to go home a nd follow up with outpatient psychiatry and counseling. He was motivated to do this and stated that he felt the hospitalization had been helpful to him. He stated that his paranoia has resolved and he continued to display good behavioral control. On the day of admission I met with the patient in the day room and he was calm and composed, showed me his writings and journals and was able to outline h is plan for discharge and followup. Condition at discharge was stable. His affect was euthymic, stable, and appropriate. He was interac ting very appropriately and displayed no evidence of paranoia. He has tolerated his medicines well w ith no side effects and was compliant. DISCHARGE DIAGNOSES: 1. Unspecified psychotic disorder. 2. 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 3. Cannabis use disorder, severity unknown. 4. Alcohol use disorder, severity unknown. 5. Possible bipolar disorder. DISCHARGE MEDICATIONS: 1. Risperdal Consta 25 mg every 2 weeks. Last given 10/17/2018. 2. Depakote ER 1000 mg p.o. at bedtime. FOLLOWUP: The patient has appointments with [facility] as scheduled by the respiratory care technician for next week. He is given specific dates and times in written form at the time of disch arge. DISPOSITION: The patient left the hospital with his mother to return to their home. The patient's attitude at time of discharge was positive. The patient was placed on a short-term cer tification at the expiration of his M1 hold. There are no pending labs or studies at the time of discharge. Patient was full code throughout his stay. The patient was administered nicotine, alcohol, cannabis, and metabolic screenings, though was not in terested in followup for any of these conditions. /[id number]/MODL
== END 2018-10-15 10:15 | disposition home or self-care (01) | DRG 753 ==
LOC: BBEH 23:00 → UNDODISIN 10-07 12:00
PROVIDERS: ADMIT Psychiatry & Neurology Psychiatry; ATTEND Psychiatry & Neurology Psychiatry
DX: F31.9 Bipolar disorder, unspecified (principal); F07.81 Postconcussional syndrome; F84.9 Pervasive developmental disorder, unspecified; F12.959 Cannabis use, unspecified with psychotic disorder, unspecified; Z72.89 Other problems related to lifestyle; Z87.820 Personal history of traumatic brain injury; Z23 Encounter for immunization; T42.6X6A Underdosing of other antiepileptic and sedative-hypnotic drugs, initial encounter
CPT/HCPCS: 80305; G0008; G0480; J2060; J2794

== ENCOUNTER 2018-10-07 12:12 | Emergency (ER) | payer MEDICAID ==
[2018-10-07] MEDS ORDERED: NS 500 ML IV ONE (13:42)
--- NOTE | 2018-10-07 13:48 | EDPHY ---
H & P Time Seen by Provider: 10/07/18 12:59 HPI/ROS: HPI Anxiety reaction, possible seizure on [address] [place] [address]. 23-year-old male, history of bipolar disorder, by ambulance from [address] [place] [address] where he is a inpatient under the care of Dr. Candelaria. He apparently was upset that his medications had been changed. He had what looked like seizure activity verses a panic attack on the [facility]al. He was sent here for evaluation. He received intramuscular Versed by EMS on the way over here. Currently he is relaxed and comfortable and has no complaints. ROS: Constitutional: No fever, no chills. As above. Eyes: No discharge. No changes in vision. ENT: No sore throat. No nasal congestion or rhinorrhea. Respiratory: No cough. No shortness of breath. Cardiac: No chest pain, no palpitations. Gastrointestinal: No abdominal pain, no vomiting, no diarrhea. Genitourinary: No hematuria. No dysuria or increased frequency with urination. Musculoskeletal: No back pain. No neck pain. No myalgias or arthralgias. Skin: No rashes. Neurological: No headache. No focal weakness or altered sensation. Past medical history: Bipolar. Autism, TBI. His medications currently include Ativan, Depakote, Risperdal and Zyprexa p.r.n.. As above. Social history: Nonsmoker. No alcohol. Currently here by himself. Physical Exam: General Appearance: Alert, he is not in distress. This patient is responding to questions appropriately and in full sentences. This patient appears well- hydrated and well-nourished. Eyes: Pupils equal and round no pallor or injection. No lid edema, erythema or injection. ENT, Mouth: Mucous membranes are moist. The pharyngeal tissues are unremarkable. No edema or swelling. No asymmetry suggestive of abscess. No erythema or exudates. No tongue lacerations or abrasions. Respiratory: There are no retractions, lungs are clear to auscultation with good air movement bilaterally. Cardiovascular: Regular rate and rhythm. No murmur. Gastrointestinal: Abdomen is soft and nontender, no masses, bowel sounds normal. No focal tenderness at McBurney's point. No Solis sign. Neurological: Motor sensory function is grossly intact. Cranial nerves are normal. Gait is normal. Skin: Warm and dry, no rashes. Musculoskeletal: Neck is supple and nontender. Extremities are symmetrical. All joints range without pain or impingement. Psychiatric: No agitation. No depression. Flat affect. Database: EKG: Imaging: Procedures: Emergency department course: Triage vital signs reviewed. He was initially tachycardic but this has resolved. He is afebrile. Vital signs are otherwise normal. I spoke with his nurse, amy, on [address] [place] [address]. She described to me their concerns. We will obtained blood work to evaluate his electrolytes and Depakote level. Tentative plan is to return him to [address] [place] [address] assuming no gross abnormalities on blood work. Electrolyte panel reviewed and is unremarkable. Seizure unlikely. Depakote level is low. Patient will be transferred back to [address] [place] [address] as previously discussed with their staff under the care of Dr. Candelaria. His remaining emergency department course under my care has been uneventful. He was transferred in stable condition. I have filled out the appropriate transfer paperwork. Differential Diagnosis: The differential diagnosis on this patient includes but is not limited to anxiety reaction, panic attack, seizure. This represents a partial list of diagnoses considered. These considerations are based on history, physical exam , past history, reassessment and diagnostic testing. Smoking Status: Never smoked Constitutional: Initial Vital Signs Temperature (C) 36.3 C 10/07/18 12:28 Heart Rate 115 H 10/07/18 12:28 Respiratory Rate 18 10/07/18 12:28 Blood Pressure 141/93 H 10/07/18 12:28 O2 Sat (%) 99 10/07/18 12:28 O2 Delivery Mode Room Air O2 (L/minute) 2 Allergies/Adverse Reactions: No Known Allergies Allergy (Unverified 10/02/18 15:55) Home Medications: Medication Instructions Recorded Divalproex ER [Depakote ER 500 MG 500 mg PO HS 10/02/18 (*)] Medical Decision Making - Data Points Laboratory Results: Laboratory Results 10/07/18 14:00 10/07/18 14:00 Sodium 138 mEq/L mEq/L (135-145) Potassium 3.8 mEq/L mEq/L (3.5-5.2) Chloride 103 mEq/L mEq/L (97-110) Carbon Dioxide 23 mEq/l mEq/l (22-31) Anion Gap 12 mEq/L mEq/L (6-14) BUN 10 mg/dL mg/dL (7-23) Creatinine 0.8 mg/dL mg/dL (0.7-1.3) Estimated GFR > 60 Glucose 88 mg/dL mg/dL (70-100) Calcium 9.6 mg/dL mg/dL (8.5-10.4) Valproic Acid 42.7 mcg/mL L mcg/mL (50.0-150.0) Medications Given: Discontinued Medications Sodium Chloride (Ns) 500 mls @ 0 mls/hr IV EDNOW ONE; Wide Open PRN Reason: Protocol Stop: 10/07/18 13:43 Last Admin: 10/07/18 14:11 Dose: 500 mls Lorazepam (Ativan Injection) 1 mg IVP EDNOW ONE Stop: 10/07/18 15:44 Last Admin: 10/07/18 15:54 Dose: Not Given Lorazepam (Ativan) 1 mg PO EDNOW ONE Stop: 10/07/18 15:46 Last Admin: 10/07/18 15:49 Dose: 1 mg Departure - Departure Disposition: [facility] IP Clinical Impression: Anxiety reaction, Seizure-like activity Condition: Good Instructions: Nonepileptic Seizures (ED) Additional Instructions: Read and follow provided instructions. Resume medication as prescribed. Return to the emergency department for worsening symptoms or other serious concerns. Referrals: NONE *PRIMARY CARE P,. [Primary Care Provider] - As per Instructions
[2018-10-07 15:39] VITALS: BP 171/93
[2018-10-07] MEDS ORDERED: LORazepam 2 MG/ML INJ IVP ONE (15:43)
[2018-10-07] MEDS ORDERED: LORazepam 1 MG TAB PO ONE (15:45)
== END 2018-10-07 16:04 ==
LOC: EDBD → EDUNIT#
DX: F41.1 Generalized anxiety disorder (principal); R56.9 Unspecified convulsions; E86.9 Volume depletion, unspecified
CPT/HCPCS: 96374